=== PATIENT | male | born 1955 | race Caucasian/White ===

== ENCOUNTER 2016-10-01 13:44 | Observation (INO) | payer MEDICAID, OTHER ==
[~2016-10-01] VITALS: Ht 177.8 cm; Wt 82.7 kg
[~2016-10-01 13:44] MED LIST: ASPI81TA2 PO; TICA90TA PO
[2016-10-01] MEDS ORDERED: ATOR40TA70 PO (14:01)
[2016-10-01 15:05] LABS: BASOPHILS % 0.4 % (0.0-2.0); EOSINOPHILS % 2.2 % (0.0-5.0); HEMATOCRIT. 40.7 % (42.0-52.0); HEMOGLOBIN. 14.1 g/dL (14.0-18.0); LYMPHOCYTES % 29.3 % (20.0-50.0); MEAN CORPUSCULAR HEMOGLOBIN 30.2 pg (28.0-32.0); MEAN CORPUSCULAR HGB CONC 34.6 g/dL (31.0-37.0); MEAN CORPUSCULAR VOLUME 87.3 fL (80.0-94.0); MEAN PLATELET VOLUME 7.7 fl (7.4-10.4); MONOCYTES % 7.5 % (2.0-8.0); NEUTROPHILS % 60.6 % (40.0-76.0); PLATELET 215 x1000/uL (130-400); RED BLOOD CELL COUNT 4.66 mill/uL (4.7-6.1); RED CELL DISTRIBUTION WIDTH 13.6 % (11.6-14.6)
[2016-10-01 15:11] LABS: INR 1.1
[2016-10-01 15:20] LABS: ANION GAP 13; CALCIUM 8.4 mg/dL (8.5-10.1); CARBON DIOXIDE 28 mEq/L (21-32); CHLORIDE 107 mEq/L (98-107); INDEX HEMOLYSI 1 (1-3); INDEX ICTERIC 1 (1-4); INDEX LIPEMIC 1 (1-3); NT PRO B-TYPE NATRIURETIC PEP 892 pg/mL (5-125); TROPONIN I < 0.02 ng/mL (0.00-0.04); UREA NITROGEN BLOOD 15 mg/dL (7-21); eGFR > 60 mL/min (>60)
[2016-10-01 15:46] LABS: *AMPHETAMINES SCREEN URINE NEGATIVE (NEGATIVE); *BARBITURATES SCREEN URINE NEGATIVE (NEGATIVE); *BENZODIAZEPINES SCREEN URINE NEGATIVE (NEGATIVE); *COCAINE SCREEN URINE NEGATIVE (NEGATIVE); CANNABINOID URINE SCREEN NEGATIVE (NEGATIVE); ECSTASY MDMA SCREEN URINE NEGATIVE (NEGATIVE); METHADONE URINE SCREEN NEGATIVE (NEGATIVE); OPIATES URINE SCREEN NEGATIVE (NEGATIVE); PHENCYCLIDINE URINE SCREEN NEGATIVE (NEGATIVE)
[2016-10-01] MEDS ORDERED: ACETAMINOPHEN 325MG TABLET PO ONE (16:15)
[2016-10-01] MEDS: NEBIVOLOL HCL 5 MG TABLET PO SCH (18:56)
[2016-10-01] MEDS ORDERED: ATORVASTATIN CALCIUM 40MG TABLET PO SCH (21:00)
[2016-10-01] MEDS: TICAGRELOR 90 MG TABLET PO SCH (22:13)
[2016-10-01 22:27] VITALS: BP 136/92
[2016-10-01] MEDS ORDERED: TEMAZEPAM 15MG CAPSULE PO PRN (23:15)
[2016-10-01] MEDS ORDERED: ACETAMINOPHEN 325MG TABLET PO PRN (23:15)
[2016-10-02] VITALS: BP 100/56
[2016-10-02 04:00] VITALS: BP 110/77
[2016-10-02 05:25] LABS: BASOPHILS % 0.2 % (0.0-2.0); EOSINOPHILS % 5.8 % (0.0-5.0); HEMATOCRIT. 38.9 % (42.0-52.0); HEMOGLOBIN. 13.5 g/dL (14.0-18.0); LYMPHOCYTES % 33.6 % (20.0-50.0); MEAN CORPUSCULAR HGB CONC 34.8 g/dL (31.0-37.0); MEAN CORPUSCULAR VOLUME 86.3 fL (80.0-94.0); MEAN PLATELET VOLUME 8.3 fl (7.4-10.4); MONOCYTES % 9.6 % (2.0-8.0); NEUTROPHILS % 50.8 % (40.0-76.0); PLATELET 213 x1000/uL (130-400); RED CELL DISTRIBUTION WIDTH 13.3 % (11.6-14.6); WHITE BLOOD COUNT 8.1 x1000/uL (4.5-11.0)
[2016-10-02 07:52] LABS: ANION GAP 15; CALCIUM 8.3 mg/dL (8.5-10.1); CARBON DIOXIDE 24 mEq/L (21-32); CHLORIDE 106 mEq/L (98-107); INDEX HEMOLYSI 1 (1-3); INDEX ICTERIC 1 (1-4); INDEX LIPEMIC 1 (1-3); TROPONIN I < 0.02 ng/mL (0.00-0.04); UREA NITROGEN BLOOD 17 mg/dL (7-21); eGFR > 60 mL/min (>60)
[2016-10-02 08:00] VITALS: BP 108/74
[2016-10-02] MEDS: NEBIVOLOL HCL 5 MG TABLET PO SCH (09:00)
[2016-10-02] MEDS ORDERED: ASPIRIN 81MG EC TABLET PO SCH (09:00)
[2016-10-02] MEDS: TICAGRELOR 90 MG TABLET PO SCH (09:05)
[2016-10-02] MEDS ORDERED: REGADENOSON 0.4 MG/5 ML IV NR (09:45)
[2016-10-02] MEDS ORDERED: REGADENOSON 0.4 MG/5 ML IV ONE (10:49)
[2016-10-02 12:00] VITALS: BP 112/82
[2016-10-02 15:09] VITALS: BP 126/78
[2016-10-02 16:00] VITALS: BP 105/75
[2016-10-02] MEDS ORDERED: TICAGRELOR 90 MG TABLET PO SCH ×2 (17:00)
== END 2016-10-02 17:00 | disposition home or self-care (01) ==
LOC: ER 15:53 → INTOOBSV 19:00 → 5WST 19:00
PROVIDERS: ADMIT Internal Medicine; ATTEND Specialist
DX: I25.10 Atherosclerotic heart disease of native coronary artery without angina pectoris (principal); I25.2 Old myocardial infarction; R11.2 Nausea with vomiting, unspecified; R74.8 Abnormal levels of other serum enzymes; I50.9 Heart failure, unspecified; I11.0 Hypertensive heart disease with heart failure; E78.5 Hyperlipidemia, unspecified; E11.9 Type 2 diabetes mellitus without complications; Z87.891 Personal history of nicotine dependence; Z95.5 Presence of coronary angioplasty implant and graft; I25.5 Ischemic cardiomyopathy; Z79.82 Long term (current) use of aspirin
CPT/HCPCS: 36415; 71010; 78452; 80048; 80061; 80305; 83880; 84484; 85025; 85610; 93005; 93017; 93306; 99285; A9500; G0378; J2785; J8499

== ENCOUNTER 2017-01-17 13:06 | Inpatient (IN) | payer OTHER ==
[~2017-01-17] VITALS: Ht 175.3 cm; Wt 80.7 kg
[~2017-01-17 13:06] MED LIST changes: +ASPI-1160 PO; -ASPI81TA2 PO; +ATOR40TA70 PO
[2017-01-17] MEDS ORDERED: ASPIRIN 81MG TABLET PO ONE (13:30)
[2017-01-17] MEDS ORDERED: NITROGLYCERIN 0.4MG TABLET SL SL PRN (13:30)
[2017-01-17 14:50] LABS: BASOPHILS % 0.3 % (0.0-2.0); EOSINOPHILS % 1.9 % (0.0-5.0); HEMATOCRIT. 38.7 % (42.0-52.0); HEMOGLOBIN. 13.2 g/dL (14.0-18.0); LYMPHOCYTES % 29.8 % (20.0-50.0); MEAN CORPUSCULAR HEMOGLOBIN 29.5 pg (28.0-32.0); MEAN CORPUSCULAR VOLUME 86.5 fL (80.0-94.0); MEAN PLATELET VOLUME 8.4 fl (7.4-10.4); MONOCYTES % 8.1 % (2.0-8.0); NEUTROPHILS % 59.9 % (40.0-76.0); PLATELET 208 x1000/uL (130-400); RED BLOOD CELL COUNT 4.48 mill/uL (4.7-6.1); RED CELL DISTRIBUTION WIDTH 13.2 % (11.6-14.6)
[2017-01-17 14:54] LABS: INR 1.1; PROTHROMBIN TIME 10.9 sec
[2017-01-17 14:59] LABS: CARBON DIOXIDE 28 mEq/L (21-32); CHLORIDE 106 mEq/L (98-107)
[2017-01-17 15:06] LABS: TROPONIN I < 0.02 ng/mL (0.00-0.04)
[2017-01-17] MEDS ORDERED: MORPHINE SULFATE 2 MG/ML CPJ (NOT FOR IM USE) IV ONE (15:15)
[2017-01-17 22:19] VITALS: BP 112/89
[2017-01-17 22:20] VITALS: BP 112/89
[2017-01-17] MEDS ORDERED: OMEP40CA34 PO (23:04)
[2017-01-17] MEDS ORDERED: ZOLP10TA2 PO (23:04)
[2017-01-17] MEDS ORDERED: LOSA100T14 PO (23:04)
[2017-01-17] MEDS ORDERED: DIPHENHYDRAMINE 25MG CAPSULE PO NR (23:30)
[2017-01-18] MEDS ORDERED: ONDANSETRON HCL 4MG/2ML VIAL IV PRN
[2017-01-18 00:01] LABS: CREATINE KINASE 106 IU/L (39-308); TROPONIN I < 0.02 ng/mL (0.00-0.04)
[2017-01-18 00:04] LABS: CREATINE KINASE MB FRACTION 2.4 ng/mL (0.5-3.6)
[2017-01-18 05:11] VITALS: BP 106/66
[2017-01-18 06:22] LABS: BASOPHILS % 0.2 % (0.0-2.0); EOSINOPHILS % 2.1 % (0.0-5.0); HEMATOCRIT. 40.9 % (42.0-52.0); HEMOGLOBIN. 14.3 g/dL (14.0-18.0); LYMPHOCYTES % 25.5 % (20.0-50.0); MEAN CORPUSCULAR HEMOGLOBIN 30.3 pg (28.0-32.0); MEAN CORPUSCULAR VOLUME 86.7 fL (80.0-94.0); MEAN PLATELET VOLUME 8.3 fl (7.4-10.4); MONOCYTES % 7.6 % (2.0-8.0); NEUTROPHILS % 64.6 % (40.0-76.0); PLATELET 200 x1000/uL (130-400); RED BLOOD CELL COUNT 4.72 mill/uL (4.7-6.1); RED CELL DISTRIBUTION WIDTH 13.2 % (11.6-14.6)
[2017-01-18] MEDS: PANTOPRAZOLE 40MG DR TABLET PO SCH ×2 (06:26)
[2017-01-18 07:16] LABS: CHLORIDE 106 mEq/L (98-107)
[2017-01-18] MEDS ORDERED: ATORVASTATIN CALCIUM 40MG TABLET PO SCH (07:20)
[2017-01-18 07:33] LABS: CARBON DIOXIDE 24 mEq/L (21-32); HDL CHOLESTEROL 48 mg/dL (40-59); LDL CHOLESTEROL 53 mg/dL (5-100); T4 FREE 1.02 ng/dL (0.76-1.46)
[2017-01-18 08:00] VITALS: BP 106/67
[2017-01-18] MEDS ORDERED: ENOXAPARIN 40MG/0.4ML SYR SUBCUT SCH (09:00)
[2017-01-18] MEDS ORDERED: LOSARTAN POTASSIUM 100 MG TABLET PO SCH (09:00)
[2017-01-18] MEDS ORDERED: TICAGRELOR 90 MG TABLET PO SCH (09:00)
[2017-01-18 09:52] VITALS: BP 117/75
[2017-01-18] MEDS: METOPROLOL TARTRATE 50MG TABLET PO SCH ×2 (09:53)
[2017-01-18 11:52] VITALS: BP 107/72
[2017-01-18 12:37] VITALS: BP 107/72
== END 2017-01-18 13:30 | disposition home or self-care (01) | DRG 198 ==
LOC: ER 13:06 → 6WST 16:16 → CANRESERV 19:43 → ENRESERV 19:43
PROVIDERS: ADMIT Internal Medicine; ATTEND Internal Medicine
DX: R07.89 Other chest pain (principal); I25.2 Old myocardial infarction; I25.110 Atherosclerotic heart disease of native coronary artery with unstable angina pectoris; I11.9 Hypertensive heart disease without heart failure; E78.5 Hyperlipidemia, unspecified; I25.5 Ischemic cardiomyopathy; Z82.49 Family history of ischemic heart disease and other diseases of the circulatory system; Z95.5 Presence of coronary angioplasty implant and graft; Z87.891 Personal history of nicotine dependence
CPT/HCPCS: 36415; 71010; 80053; 80061; 82550; 82553; 83880; 84439; 84443; 84484; 85025; 85610; 93005; 96374; 99285; J1650; J2270; J7030; Q0163; J8499

== ENCOUNTER 2017-08-25 20:06 | Emergency (ER) | payer OTHER ==
[~2017-08-25] VITALS: Ht 177.8 cm; Wt 79.0 kg
[~2017-08-25 20:06] MED LIST changes: +LOSA100T14 PO; +OMEP40CA34 PO; +ZOLP10TA2 PO
[2017-08-25 20:36] VITALS: BP 107/83
== END 2017-08-25 22:43 | disposition left against medical advice (07) ==
LOC: ER 21:26
DX: Z53.21 Procedure and treatment not carried out due to patient leaving prior to being seen by health care provider (principal)

== ENCOUNTER 2024-08-19 15:29 | Emergency (ER) | payer MEDICARE, OTHER ==
[~2024-08-19] VITALS: Ht 172.7 cm; Wt 91.0 kg
[~2024-08-19 15:29] MED LIST changes: -LOSA100T14 PO; +LOSA100T33 PO; +OMEP40CA20 PO; -OMEP40CA34 PO
[2024-08-19 15:30] VITALS: O2SAT 98
[2024-08-19 15:31] VITALS: BP 131/87; PULSE 72; RESP 18; TEMP 36.6; O2SAT 100
== END 2024-08-19 18:03 | disposition left against medical advice (07) ==
LOC: ER 15:29
DX: R07.89 Other chest pain (principal); I25.2 Old myocardial infarction; I25.10 Atherosclerotic heart disease of native coronary artery without angina pectoris; I10 Essential (primary) hypertension; Z79.82 Long term (current) use of aspirin; Z79.899 Other long term (current) drug therapy; Z98.890 Other specified postprocedural states
CPT/HCPCS: 71045; 93005; 99283; A4606